=== PATIENT | female | born 1995 | race Two or more races ===

== ENCOUNTER 2018-06-15 15:10 | Emergency (ER) | payer OTHER ==
[~2018-06-15] VITALS: Ht 165.1 cm; Wt 68.0 kg
[2018-06-15] MEDS ORDERED: HydrOXYzine 50mg tab ORAL ONE (15:45)
--- NOTE | 2018-06-15 16:07 | Emergency Room Report ---
History of Present Illness General Chief Complaint: Skin Rash/Abscess Source: Patient Present Illness HPI 23 YO Female presents to the ED c/o Rash x 1 week, itchy. started one patch on back of arm, then next morning over torso and had spread to UE's. Denies pain. Pt. denies fevers, chills or swollen tender lymph nodes. Denies lesions on the face. Denies new medications or body washes or creams. Denies swelling of the lips, tongue , throat or airway. Denies wheezing, or shortness of breath. Denies recent travel, recent illness or ill contacts. denies blisters, oral lesions, or sloughing of the skin Allergies: Coded Allergies: No Known Allergies (Unverified , 06/15/18) Patient History Past Medical History: see triage record Past Surgical History: none Pertinent Family History: none Now: No Reviewed Nursing Documentation: PMH: Agreed; PSxH: Agreed Nursing Documentation-PMH Past Medical History: No Stated History Review of Systems All Other Systems: negative except mentioned in HPI Physical Exam Vital Signs Date Time Temp Pulse Resp B/P (MAP) Pulse Ox O2 Delivery O2 Flow Rate FiO2 06/15/18 15:04 98.0 68 16 138/67 98 Room Air 98.1 Sp02 EP Interpretation: reviewed, normal General Appearance: no apparent distress, alert, GCS 15, non-toxic Head: normocephalic, atraumatic ENT: hearing grossly normal, normal voice, other - no swelling of the lilps or tongue Neck: full range of motion Respiratory: lungs clear, normal breath sounds, no respiratory distress, no wheezing, speaking full sentences Cardiovascular #1: regular rate, rhythm, no edema, normal capillary refill Gastrointestinal: non tender, soft Musculoskeletal: back normal, gait/station normal, normal range of motion, non- tender Neurologic: alert, oriented x3, responsive, motor strength/tone normal, sensory intact, normal gait, speech normal, grossly normal Psychiatric: judgement/insight normal Skin: normal color, warm/dry, well hydrated, rash - maculopapular rash on the torso and the UE's, non-blanching, not raised. no blisters or vesciles. Lymphatic: no adenopathy Medical Decision Making PA Attestation Dr. Cabrera is my supervising Physician whom patient management has been discussed with. Diagnostic Impression: Primary Impression: Rash and other nonspecific skin eruption ER Course 23 YO Female presents to the ED c/o Rash x 1 week, itchy. started one patch on back of arm, then next morning over torso and had spread to UE's. Denies pain. Pt. denies fevers, chills or swollen tender lymph nodes. Denies lesions on the face. Denies new medications or body washes or creams. Denies swelling of the lips, tongue , throat or airway. Denies wheezing, or shortness of breath. Denies recent travel, recent illness or ill contacts. denies blisters, oral lesions, or sloughing of the skin Ddx considered but are not limited to cellulitis, scabies, shingles, varicella, dermatitis, urticaria, eczema, tinea, viral exanthem, SJS Vital signs: are WNL, pt. is afebrile H&PE are most consistent with a dermatitis highly suspicious for pitryasis ORDERS: none required at this time, the diagnosis is clinical ED INTERVENTIONS: -Hydroxyzine PO DISCHARGE: At this time pt. is stable for d/c to home. Will provide printed patient care instructions, and any necessary prescriptions. Care plan and follow up instructions have been discussed with the patient prior to discharge. Last Vital Signs Date Time Temp Pulse Resp B/P (MAP) Pulse Ox O2 Delivery O2 Flow Rate FiO2 06/15/18 15:04 98.0 68 16 138/67 98 Room Air 98.1 Disposition: HOME, SELF-CARE Condition: Stable Scripts Hydroxyzine HCl (Hydroxyzine HCl) 25 Mg Tablet 25 MG ORAL FOUR TIMES A DAY, #28 TAB Prov: Tata Ribera 06/15/18 Triamcinolone Acetonide (Triamcinolone Acetonide) 15 Gm Oint...g. 1 APPLIC TOPIC BID, #15 GM Prov: Tata Ribera 06/15/18 Referrals: [facility],REFERRING (PCP) Patient Instructions: Pityriasis Rosea, Rash Additional Instructions: Take medications as directed. Follow up with a Primary Care Provider in 3-5 days, even if your symptoms have resolved, may require DERMATOLOGY follow up if symptoms persist --Please review list of primary care clinics, if you do not already have a primary care provider Return sooner to ED if new symptoms occur, or current symptoms become worse. ! Do not drink alcohol, drive, or operate heavy machinery while taking Hydroxyzine as this may cause drowsiness. - Please note that this Emergency Department Report was dictated using [employer] head technology software, occasionally this can lead to erroneous entry secondary to interpretation by the dictation equipment. Tata Ribera Jun 15, 2018 16:07
[2018-06-15] MEDS ORDERED: KENALOG1 APPLIC TOPIC (16:08)
[2018-06-15] MEDS ORDERED: ATARAX25 MG ORAL (16:08)
[2018-06-15 16:42] VITALS: BP 93/58
== END 2018-06-15 16:43 | disposition home or self-care (01) ==
LOC: EDBD 15:10 → EMR 15:43
DX: R21 Rash and other nonspecific skin eruption (principal)
CPT/HCPCS: 99284